=== PATIENT | female | born 1945 | race Caucasian/White ===

== ENCOUNTER 2017-10-05 12:48 | Emergency (ER) | payer MEDICARE, BC ==
--- NOTE | 2017-10-05 13:04 | Emergency Department Record ---
History of Present Illness - General Chief Complaint: Fall Injury Stated Complaint: FALL Time Seen by Provider: 10/05/17 12:58 Source: Patient Mode of Arrival: Ambulatory Limitations: No limitations - History of Present Illness Initial Comments: 72 yo female presents with 3-4 days of vague fatigue, vague feeling of being off balance, and some nausea. She denies headache, vision changes, coordination changes, double vision, vision loss, speech or memory changes, numbness, tingling, swallowing changes, chest pain, shortness of breath or any other specific symptoms. The vague symptoms seem present at most times. She was seen in the [facility] prior to arrival. She did hit her head falling in the shower about 2 and half weeks ago. No fever, chills, dysuria. She has not seen her PCP. She has Sojren's syndrom. Complaint: Fall, Other -: Days(s) Fall From: Standing When Fall Occurred: # Days [employer] Fall Witnessed: No Place Fall Occurred: Home Loss of Consciousness: None Prolonged Down Time?: No Symptoms Prior to Fall: None Location: Head Severity: Mild Quality: Other (No pain) Associated Symptoms: Lightheaded, Vertigo - Fabienne Coma Scale Eye Response: (4) Open spontaneously Motor Response: (6) Obeys commands Verbal Response: (5) Oriented [place] Total: 15 - Related Data Previous Rx's Medication Instructions Recorded Ondansetron [Zofran Odt] 4 mg PO Q8H #15 tab.rapdis 10/05/17 Allergies Allergy/AdvReac Type Severity Reaction Status Date / Time Sulfa (Sulfonamide Allergy Intermediate PT UNSURE Verified 10/05/17 13:02 Antibiotics) OF REACTION Review of Systems Constitutional: Reports: Malaise. Denies: Chills, Fever, Night sweats, Weakness Eyes: Reports: Other. Denies: Eye discharge, Eye pain, Photophobia, Vision change ENT: Denies: Congestion, Ear pain, Epistaxis, Throat pain Respiratory: Denies: Cough, Dyspnea, Wheezes Cardiovascular: Denies: Chest pain, Dyspnea on exertion, Edema, Palpitations, Syncope Endocrine: Reports: Fatigue. Denies: Polydipsia, Polyuria Gastrointestinal: Reports: Nausea. Denies: Abdominal pain, Diarrhea, Vomiting Genitourinary: Denies: Discharge, Dyspareunia, Dysuria Musculoskeletal: Denies: Arthralgia, Back pain, Joint swelling, Myalgia Neurological: Reports: Vertigo, Weakness (generalized). Denies: Abnormal gait, Confusion, Headache, Numbness, Paresthesias, Seizure, Tingling, Tremors Psychiatric: Denies: Anxiety Hematological/Lymphatic: Denies: Blood Clots, Easy bleeding, Easy bruising, Swollen glands Physical Exam - General General Appearance: Alert, Oriented x3, Cooperative, No acute distress Limitations: No limitations - Head Head exam: Atraumatic, Normocephalic, Normal inspection - Eye Eye exam: Normal appearance, PERRL, EOMI, Other (No double vision). negative: Conjunctival injection, Nystagmus, Periorbital swelling, Periorbital tenderness , Scleral icterus - ENT ENT exam: Normal exam, Mucous membranes moist, Normal orophraynx, TM's normal bilaterally Ear exam: Normal external inspection Nasal Exam: Normal inspection Mouth exam: Normal external inspection Teeth exam: Normal inspection Throat exam: Normal inspection - Neck Neck exam: Normal inspection, Full ROM. negative: Lymphadenopathy, Meningismus , Tenderness - Respiratory Respiratory exam: Normal lung sounds bilaterally. negative: Respiratory distress - Cardiovascular Cardiovascular Exam: Regular rate, Normal rhythm, Normal heart sounds Peripheral Pulses: 2+: Radial (R), Radial (L) - GI/Abdominal GI/Abdominal exam: Soft. negative: Tenderness - Rectal Rectal exam: Deferred - exam: Deferred - Extremities Extremities exam: Normal inspection, Full ROM, Normal capillary refill. negative: Tenderness - Back Back exam: Reports: Normal inspection, Full ROM. Denies: CVA tenderness (R), CVA tenderness (L), Muscle spasm, Rash noted, Tenderness - Neurological Neurological exam: Alert, CN II-XII intact, Normal gait, Oriented X3, Reflexes normal, Other (Normal FTN, Normal TRELL, Normal tracking, NO PND upper or lower extremities). negative: Altered, Motor sensory deficit - Psychiatric Psychiatric exam: Normal affect, Normal mood. negative: Agitated, Anxious - Skin Skin exam: Dry, Intact, Normal color, Warm Course - Reevaluation(s) Reevaluation #1: 10/05/17 13:07 The XR's were reviewed On the oblique view of the ankle series tip of the 5th MT appears there is a small fracture. Not seen on other viewed. Small knee effusion without fx. DonJoy and crutches provided 10/05/17 13:16 EKG NSR, rate 77, intervals normal, axis normal, NS ST changes. No old. 10/05/17 14:01 The labs were reviewed No acute changes on the CBC,CMP,UA. 10/05/17 14:15 TSH is 5.4 10/05/17 14:40 The HCT was negative for any acute process. Chronic deep white matter changes. 10/05/17 14:54 The results, BP, HCT were discussed with the patient. Recommend close follow up with her PCP. She has a normal neuro examination. He symptoms are fairly vague without any historic symptoms to suggest acute neurologic event. We discuss the follow up and reasons to return to the ED. Medical Decision Making - Lab Data Result diagrams: 10/05/17 13:26 10/05/17 13:26 Disposition Disposition: Discharge Clinical Impression: Dizziness Disposition: Home, Self-Care Condition: (1) Good Instructions: Dizziness (ED) Additional Instructions: Call your doctor today for close follow up of this ER visit and the results of all tests You will need a repeat blood pressure check in your family doctor office this week as it was elevated today. Return of be seen immediately if worse or any new concerns. Prescriptions: Ondansetron [Zofran Odt] 4 mg PO Q8H #15 tab.rapdis Forms: Patient Portal Access Time of Disposition: 14:49 Quality - Quality Measures Quality Measures: N/A - Blood Pressure Screening Does Patient Have Any of the Following: No Blood Pressure Classification: Hypertensive Reading Systolic Measurement: 180 Diastolic Measurement: 104 Screening for High Blood Pressure: < Pre-Hypertensive BP, F/U Documented > [ [id number]] Pre-Hypertensive Follow-up Interventions: Referral to alternative/primary care provider.
[2017-10-05 13:35] LABS: HEMATOCRIT 43.4 % (35.0-47.0); HEMOGLOBIN 14.2 gm/dl (11.6-16.0); MEAN CELL VOLUME 95.8 fl (81-97); MEAN CORPUSCULAR HEMOGLOBIN 31.3 pg (27-33); MEAN CORPUSCULAR HGB CONC 32.7 g/dl (32-36); PLATELET COUNT 341 K/uL (130-400); RED BLOOD COUNT 4.53 M/uL (3.80-5.40); RED CELL DISTRIBUTION WIDTH 12.9 % (11.5-14.5); WHITE BLOOD COUNT W/O DIFF 7.4 K/uL (4.2-12.2)
[2017-10-05 13:36] LABS: URINE APPEARANCE CLEAR; URINE BILIRUBIN NEGATIVE (NEGATIVE); URINE BLOOD NEGATIVE (NEGATIVE); URINE COLOR YELLOW; URINE GLUCOSE (UA) NEGATIVE (NEGATIVE); URINE KETONE NEGATIVE (NEGATIVE); URINE LEUKOCYTE ESTERASE NEGATIVE (NEGATIVE); URINE NITRITE NEGATIVE (NEGATIVE); URINE PROTEIN NEGATIVE (NEGATIVE); URINE UROBILINOGEN 0.2 E.U./dL (0.20 - 1.00)
[2017-10-05 13:52] LABS: BLOOD UREA NITROGEN 16 mg/dL (8-23); CREATININE 0.8 mg/dL (0.5-0.9); EST GLOMERULAR FILTRATION RATE > 60 mL/min
[2017-10-05 13:53] LABS: TOTAL PROTEIN 7.9 g/dL (6.6-8.7)
[2017-10-05 13:55] LABS: GLUCOSE,RANDOM 91 mg/dL (74-109)
[2017-10-05 13:58] LABS: ALB/GLOB RATIO 1.1 (1.1-1.8); ALBUMIN 4.2 g/dL (4.0-5.0); ALKALINE PHOSPHATASE 75 U/L (35-104); ALT/SGPT 18 U/L (<33); AST/SGOT 18 U/L (10.0-35.0)
[2017-10-05 14:08] LABS: THYROID STIMULATING HORMONE 5.47 uIU/mL (0.270-4.20)
--- NOTE | 2017-10-07 08:34 | CT SCAN REPORT ---
EXAM: EMERGENCY HEAD CT HISTORY: PATIENT FELL TWO WEEKS AGO AND HIT HEAD, DIZZY. TECHNIQUE: Axial CT scan of the head was performed without IV contrast. Comparison: CT of the head dated 02/25/11. Encounter: Initial. FINDINGS: No definite acute intracranial hemorrhage identified. No focal mass effect or midline shift apparent. No definite acute infarct or intracranial mass lesion seen. Mild generalized atrophy is present. Mild chronic appearing deep white matter changes also seen, nonspecific, but likely representing some chronic small vessel deep white matter ischemic disease. No depressed calvarial fracture is evident. IMPRESSION: 1. MILD GENERALIZED ATROPHY WITH CHRONIC APPEARING DEEP WHITE MATTER CHANGES. 2. NO DEFINITE ACUTE INTRACRANIAL HEMORRHAGE OR FOCAL MASS EFFECT IDENTIFIED. JOB NUMBER: [id number] [facility]
== END 2017-10-05 15:11 | disposition home or self-care (01) ==
LOC: ER 12:48
DX: R42 Dizziness and giddiness (principal); R11.0 Nausea; M35.00 Sjogren syndrome, unspecified; R53.83 Other fatigue; Z91.81 History of falling
CPT/HCPCS: 70450; 80053; 81003; 84443; 85027; 93005; 93010; 99284